=== PATIENT | male | born 1945 | race Caucasian/White ===

== ENCOUNTER 2024-03-05 13:08 | Emergency (ER) | payer BC, MEDICARE, OTHER ==
[~2024-03-05] VITALS: Ht 177.8 cm; Wt 79.5 kg
[2024-03-05 13:15] VITALS: RESP 16; TEMP 98.3
[2024-03-05 14:12] VITALS: BP 102/78; PULSE 62; O2SAT 96
== END 2024-03-05 14:21 | disposition home or self-care (01) ==
LOC: ER 13:08
DX: F03.90 Unspecified dementia, unspecified severity, without behavioral disturbance, psychotic disturbance, mood disturbance, and anxiety (principal); I10 Essential (primary) hypertension; I95.9 Hypotension, unspecified; R41.0 Disorientation, unspecified
CPT/HCPCS: 71045; 93005; 99284

== ENCOUNTER 2024-05-29 19:04 | Emergency (ER) | payer BC ==
[~2024-05-29] VITALS: Ht 182.9 cm; Wt 89.6 kg
[2024-05-29] MEDS: haloperidol 5mg tablet PO STA (19:57)
[2024-05-29 20:02] LABS: BASOPHILS # (AUTO) 0.1 X10'3 (0-0.2); EOSINOPHILS # (AUTO) 0.1 X10'3 (0-0.9); EOSINOPHILS % (AUTO) 1.6 % (0-6); HEMATOCRIT 33.3 % (42.0-52.0); HEMOGLOBIN 11.4 g/dl (14.0-17.9); LYMPHOCYTES # (AUTO) 1.2 X10'3 (1.1-4.8); LYMPHOCYTES % (AUTO) 17.4 % (21-51); MEAN CORPUSCULAR HEMOGLOBIN 33.6 PG (27.0-31.0); MEAN CORPUSCULAR HGB CONC 34.4 g/dL (33.0-36.5); MEAN CORPUSCULAR VOLUME 97.7 FL (78-98); MEAN PLATELET VOLUME 8.4 FL (7.4-10.4); MONOCYTES # (AUTO) 0.5 X10'3 (0-0.9); MONOCYTES % (AUTO) 7.7 % (2-12); NEUTROPHILS % (AUTO) 72.3 % (42-75); PLATELET COUNT 189 X10'3 (140-440); RED BLOOD COUNT 3.41 X10'6 (4.70-6.10); RED CELL DISTRIBUTION WIDTH 15.6 % (11.5-14.5); WHITE BLOOD COUNT 6.9 X10'3 (4.5-11.0)
[2024-05-29] MEDS ORDERED: SERT-433 PO (20:09)
[2024-05-29 20:25] LABS: ALANINE AMINOTRANSFERASE 24 U/L (12-78); ALBUMIN 3.9 G/DL (3.4-5.0); ALBUMIN/GLOBULIN RATIO 1.4 (1.1-1.5); ALKALINE PHOSPHATASE 71 IU/L (46-116); ANION GAP 5 (8-16); ASPARTATE AMINO TRANSFERASE 17 U/L (10-37); BILIRUBIN,TOTAL 0.3 MG/DL (0.1-1.0); BLOOD UREA NITROGEN 33 MG/DL (7-18); BUN/CREATININE RATIO 27.5 (10.0-20.0); CALCIUM 9.2 MG/DL (8.5-10.1); CHLORIDE 103 MMOL/L (99-107); GLUCOSE 86 MG/DL (70-104); POTASSIUM 4.6 MMOL/L (3.5-5.1); SODIUM 138 MMOL/L (135-145); TOTAL CARBON DIOXIDE 29.6 MMOL/L (24-32); TOTAL PROTEIN 6.7 G/DL (6.4-8.2); eCRCL 56 ML/MIN; eGFR 59 ML/MIN
[2024-05-29 20:30] LABS: ETHANOL < 10 MG/DL (<10)
[2024-05-29 21:21] LABS: BILIRUBIN,URINE NEGATIVE (Neg); CLARITY,URINE CLEAR (Clear); COLOR,URINE YELLOW (Yellow); GLUCOSE, URINE NEGATIVE (Neg); KETONES,URINE NEGATIVE (Neg); LEUKOCYTE ESTERASE ,URINE NEGATIVE (Neg); NITRITES, URINE NEGATIVE (Neg); OCCULT BLOOD,URINE NEGATIVE (Neg); PROTEIN,URINE NEGATIVE (Neg); UROBILINOGEN,URINE 0.2 E.U/dL (0.2-1.0)
[2024-05-29 21:23] LABS: UA COLLECTION TYPE URINAL
[2024-05-29 21:27] LABS: URINE AMPHETAMINE SCREEN NEGATIVE (Neg); URINE BARBITUATE SCREEN NEGATIVE (Neg); URINE BENZODIAZEPINES SCREEN NEGATIVE (Neg); URINE CANNABINOID SCREEN NEGATIVE (Neg); URINE COCAINE SCREEN NEGATIVE (Neg); URINE METHADONE SCREEN NEGATIVE (Neg); URINE OPIATE SCREEN NEGATIVE (Neg); URINE PHENCYCLIDINE SCREEN NEGATIVE (Neg)
[2024-05-29] MEDS: Melatonin 3mg tablet PO SCH (22:40)
[2024-05-30] MEDS: sertraline 50mg tablet PO SCH (07:40)
[2024-05-30] MEDS: haloperidol 5mg tablet PO ONE (16:19)
[2024-05-30] MEDS ORDERED: Melatonin 3mg tablet PO SCH (21:00)
[2024-05-30] MEDS: OLANZapine 2.5MG tablet PO ONE (21:44)
[2024-05-31] MEDS ORDERED: HALO0.5T PO (15:19)
[2024-05-31 15:49] VITALS: BP 194/83; PULSE 44; RESP 18; TEMP 96.8; O2SAT 100
== END 2024-05-31 15:52 | disposition home or self-care (01) ==
LOC: ER 19:05
DX: F23 Brief psychotic disorder (principal); Z20.822 Contact with and (suspected) exposure to COVID-19; I10 Essential (primary) hypertension; Z88.8 Allergy status to other drugs, medicaments and biological substances; Z79.899 Other long term (current) drug therapy
CPT/HCPCS: 36415; 80053; 80305; 80320; 81003; 84443; 85025; 87811; 99285